=== PATIENT | female | born 1990 | race Caucasian/White ===

== ENCOUNTER 2018-10-01 10:27 | Inpatient (IN) | payer OTHER, MEDICAID ==
[~2018-10-01] VITALS: Ht 162.6 cm; Wt 80.9 kg
[~2018-10-01 10:27] MED LIST: HYDR473S51 PO; NEXIUM PO; ONDA4TAB10 PO; THYR90TA PO
[2018-10-01] MEDS ORDERED: PROMETHAZINE 25 MG/ML, 1ML IM ONE (11:30)
[2018-10-01] MEDS ORDERED: PROMETHAZINE 25 MG/ML, 1ML ONE (11:35)
--- NOTE | 2018-10-01 11:37 | NUR ---
ESPINOZA, DIZZY AND VOMITING STARTED YESTERDAY. WALKED TO BATHROOM WITH ASSISTANCE OF MOTHER. MEDICATED FOR N/V PER ORDERS
[2018-10-01 11:38] LABS: BASOPHILS # (AUTO) 0.06 x10^3/uL (0-0.1); BASOPHILS % (AUTO) 1 % (0-1); EOSINOPHILS # (AUTO) 0.07 x10^3/uL (0-0.4); EOSINOPHILS % (AUTO) 1 % (1-7); LYMPHOCYTES # (AUTO) 1.11 x10^3/uL (1-3.4); LYMPHOCYTES % (AUTO) 17 % (22-44); MD NO; MEAN CORPUSCULAR HGB CONC 33.6 g/dL (32.4-35.8); MEAN CORPUSCULAR VOLUME 101.1 fL (80-100); MEAN PLATELET VOLUME 9.2 fL (7.4-10.4); MONOCYTES # (AUTO) 0.36 x10^3/uL (0.2-0.8); MONOCYTES % (AUTO) 6 % (2-9); NEUTROPHILS # (AUTO) 4.82 x10^3/uL (1.8-6.8); NEUTROPHILS % (AUTO) 75 % (42-75); PLATELET COUNT 191 x10^3/uL (130-400); RED BLOOD COUNT 5.24 x10^6/uL (3.82-5.3); RED CELL DISTRIBUTION WIDTH 14.7 % (9.6-15.2)
[2018-10-01 11:46] LABS: ALBUMIN 3.7 g/dL (3.4-5.0); ANION GAP 5 mmol/L (5-15); CALCIUM 9.4 mg/dL (8.5-10.1); CHLORIDE 112 mmol/L (98-107); CREATININE 1.54 mg/dL (0.55-1.02)
--- NOTE | 2018-10-01 11:50 | NUR ---
MEDICATED FOR NAUSEA
[2018-10-01 12:05] LABS: MICROSCOPIC NOT IND
[2018-10-01 12:13] LABS: CULTURE INDICATED? NO
--- NOTE | 2018-10-01 12:24 | NUR ---
NAUSEA IMPROVES, CONTINUES TO HAVE ESPINOZA. PARENTS AT BEDSIDE
[2018-10-01] MEDS ORDERED: ASPIRIN 325 MG TABLET PO STA (12:55)
--- NOTE | 2018-10-01 13:40 | NUR ---
REPORT TO RN. PT TO BE TRANSPORTED TO FLOOR
[2018-10-01 13:55] VITALS: BP 127/71
[2018-10-01] MEDS ORDERED: OMEP1CAP14 PO (14:52)
[2018-10-01] MEDS ORDERED: SUCR1ORA5 PO (14:52)
[2018-10-01] MEDS: SODIUM CHLORIDE 0.9% 1,000 ML IV SCH (14:54)
[2018-10-01] MEDS ORDERED: KETOROLAC 30 MG/1 ML IVPush PRN ×2 (15:00)
[2018-10-01] MEDS ORDERED: IBUPROFEN 600 MG TABLET PO PRN (15:00)
[2018-10-01] MEDS ORDERED: ONDANSETRON ODT 4 MG PO PRN (15:00)
[2018-10-01] MEDS ORDERED: OMNIPAQUE 350 MG/ML, 100ML BOTTLE ONE (19:21)
[2018-10-01] MEDS: ONDANSETRON 2MG/ML, 2ML IVPush PRN (19:44)
[2018-10-01 20:20] VITALS: BP 100/66
[2018-10-01] MEDS: ACETAMINOPHEN 325 MG TABLET PO PRN (20:24)
[2018-10-02] MEDS: SODIUM CHLORIDE 0.9% 1,000 ML IV SCH ×4 (02:17→20:52)
[2018-10-02 02:19] VITALS: BP 135/73
[2018-10-02] MEDS: ACETAMINOPHEN 325 MG TABLET PO PRN (06:10)
[2018-10-02 06:21] LABS: ANION GAP 8 mmol/L (5-15); CHLORIDE 113 mmol/L (98-107)
[2018-10-02 06:23] LABS: BASOPHILS # (AUTO) 0.07 x10^3/uL (0-0.1); BASOPHILS % (AUTO) 1 % (0-1); EOSINOPHILS # (AUTO) 0.16 x10^3/uL (0-0.4); EOSINOPHILS % (AUTO) 3 % (1-7); LYMPHOCYTES # (AUTO) 1.46 x10^3/uL (1-3.4); LYMPHOCYTES % (AUTO) 31 % (22-44); MD NO; MEAN CORPUSCULAR HEMOGLOBIN 33.2 pg (27.0-34.8); MEAN CORPUSCULAR HGB CONC 32.9 g/dL (32.4-35.8); MEAN PLATELET VOLUME 9.4 fL (7.4-10.4); MONOCYTES # (AUTO) 0.32 x10^3/uL (0.2-0.8); MONOCYTES % (AUTO) 7 % (2-9); NEUTROPHILS # (AUTO) 2.79 x10^3/uL (1.8-6.8); NEUTROPHILS % (AUTO) 58 % (42-75); PLATELET COUNT 178 x10^3/uL (130-400); RED BLOOD COUNT 4.83 x10^6/uL (3.82-5.3); RED CELL DISTRIBUTION WIDTH 14.8 % (9.6-15.2)
[2018-10-02 06:28] LABS: ALANINE AMINOTRANSFERASE 26 U/L (12-78); ALKALINE PHOSPHATASE 53 U/L (45-117); BILIRUBIN,TOTAL 0.8 mg/dL (0.2-1.0); CHOL/HDL RATIO 3.7; CHOLESTEROL, TOTAL 157 mg/dL (140-239); CREATININE 1.41 mg/dL (0.55-1.02); HDL CHOL % 27 % (28-40); HDL CHOLESTEROL (DIRECT) 43 mg/dL (40-60); LDL CHOLESTEROL,CALCULATED 100 mg/dL (54-169); LDL/HDL RATIO 2.3 (0.5-3.0); TOTAL PROTEIN 6.3 g/dL (6.4-8.2); TRIGLYCERIDES 69 mg/dL (50-200); VLDL CHOLESTEROL 14 mg/dL (0-25)
[2018-10-02 08:00] VITALS: BP 114/66
[2018-10-02] MEDS: IBUPROFEN 600 MG TABLET PO PRN ×2 (08:54→18:28)
[2018-10-02] MEDS ORDERED: ASPIRIN 81 MG TABLET EC ONE (12:59)
[2018-10-02] MEDS ORDERED: ASPIRIN 81 MG TABLET EC PO ONE (13:00)
[2018-10-02] MEDS: ONDANSETRON 2MG/ML, 2ML IVPush PRN (13:03)
[2018-10-02 13:44] VITALS: BP 116/74
[2018-10-02] MEDS ORDERED: OMEPRAZOLE/SOD. BICARB. PACKET ONE (14:51)
[2018-10-02] MEDS ORDERED: OMEPRAZOLE/SOD. BICARB. PACKET PO ONE (15:00)
[2018-10-02] MEDS ORDERED: OMEPRAZOLE 20 MG CAPSULE.DR PO SCH (16:00)
[2018-10-02 20:00] VITALS: BP 107/71
[2018-10-02] MEDS ORDERED: SUCRALFATE 1 GM/10 ML UDC PO SCH (21:00)
[2018-10-02] MEDS ORDERED: ATORVASTATIN 20 MG TABLET PO SCH (21:00)
[2018-10-03 02:58] VITALS: BP 100/65
[2018-10-03] MEDS: SODIUM CHLORIDE 0.9% 1,000 ML IV SCH (05:09)
[2018-10-03] MEDS ORDERED: ASPIRIN 81 MG TABLET EC PO SCH (06:00)
[2018-10-03] MEDS ORDERED: THYROID 30 MG TABLET PO SCH (06:00)
[2018-10-03 06:14] LABS: BASOPHILS # (AUTO) 0.01 x10^3/uL (0-0.1); BASOPHILS % (AUTO) 0 % (0-1); EOSINOPHILS # (AUTO) 0.21 x10^3/uL (0-0.4); EOSINOPHILS % (AUTO) 3 % (1-7); LYMPHOCYTES # (AUTO) 1.25 x10^3/uL (1-3.4); LYMPHOCYTES % (AUTO) 19 % (22-44); MD NO; MEAN CORPUSCULAR HEMOGLOBIN 33.3 pg (27.0-34.8); MEAN CORPUSCULAR VOLUME 100.8 fL (80-100); MEAN PLATELET VOLUME 9.1 fL (7.4-10.4); MONOCYTES # (AUTO) 0.23 x10^3/uL (0.2-0.8); MONOCYTES % (AUTO) 3 % (2-9); NEUTROPHILS % (AUTO) 75 % (42-75); PLATELET COUNT 163 x10^3/uL (130-400); RED BLOOD COUNT 4.79 x10^6/uL (3.82-5.3); RED CELL DISTRIBUTION WIDTH 15.1 % (9.6-15.2)
[2018-10-03 06:23] LABS: ALBUMIN 2.9 g/dL (3.4-5.0); ANION GAP 6 mmol/L (5-15); CALCIUM 8.3 mg/dL (8.5-10.1); CHLORIDE 117 mmol/L (98-107)
[2018-10-03 06:26] LABS: ALANINE AMINOTRANSFERASE 22 U/L (12-78); ALKALINE PHOSPHATASE 50 U/L (45-117); BILIRUBIN,TOTAL 0.7 mg/dL (0.2-1.0); CREATININE 1.18 mg/dL (0.55-1.02); TOTAL PROTEIN 6.1 g/dL (6.4-8.2)
[2018-10-03 09:26] VITALS: BP 118/76
[2018-10-03] MEDS ORDERED: ASPI81TA45 PO (10:39)
[2018-10-03] MEDS ORDERED: ATOR20TA37 PO (10:39)
== END 2018-10-03 11:30 | disposition home or self-care (01) | DRG 70 ==
LOC: ED 11:42 → EDIP 12:41 → 4EST 14:00 → DCLOUNGE 10-03 11:19
PROVIDERS: ADMIT Internal Medicine; ATTEND Internal Medicine
DX: G93.89 Other specified disorders of brain (principal); Q28.3 Other malformations of cerebral vessels; Q21.0 Ventricular septal defect; Q21.1 Atrial septal defect; R51 Headache; E03.9 Hypothyroidism, unspecified; K21.9 Gastro-esophageal reflux disease without esophagitis; K22.0 Achalasia of cardia; K22.8 Other specified diseases of esophagus; H53.2 Diplopia; Q90.9 Down syndrome, unspecified; Z79.82 Long term (current) use of aspirin; Z79.899 Other long term (current) drug therapy; Z82.49 Family history of ischemic heart disease and other diseases of the circulatory system; Z86.73 Personal history of transient ischemic attack (TIA), and cerebral infarction without residual deficits
CPT/HCPCS: 36415; 70450; 70498; 70553; 80048; 80053; 80061; 81003; 81240; 82040; 82232; 83695; 84443; 84703; 85025; 85240; 85300; 85302; 85305; 85306; 85307; 85613; 85670; 85705; 85730; 85732; 86147; 93005; 93306; 96372; G0378; J1885; J2405; J2550; Q9967; J7030

== ENCOUNTER 2019-03-28 14:24 | Outpatient (CLI) | payer OTHER, MEDICAID ==
[~2019-03-28 14:24] MED LIST changes: +ASPI81TA45 PO; +ATOR20TA37 PO; +OMEP1CAP14 PO; +SUCR1ORA5 PO
== END 2019-03-28 23:59 | disposition home or self-care (01) ==
LOC: CFH 14:24
PROVIDERS: ATTEND Obstetrics & Gynecology Gynecology
DX: R10.2 Pelvic and perineal pain (principal)
CPT/HCPCS: 76856

== ENCOUNTER → 2019-06-19 | Outpatient (CLI) | payer OTHER, MEDICAID ==
[~2019-06-19] MED LIST changes: +OMNIPAQUE 350 MG/ML, 100ML BOTTLE ONE
== END | disposition home or self-care (01) ==
LOC: CFH 07:34
PROVIDERS: ATTEND Obstetrics & Gynecology Gynecology
DX: K44.9 Diaphragmatic hernia without obstruction or gangrene (principal); K76.0 Fatty (change of) liver, not elsewhere classified; R10.2 Pelvic and perineal pain
CPT/HCPCS: 74178; Q9967

== ENCOUNTER 2019-06-26 14:56 | Emergency (ER) | payer OTHER, MEDICAID ==
[~2019-06-26] VITALS: Ht 162.6 cm; Wt 113.0 kg
[~2019-06-26 14:56] MED LIST changes: -OMNIPAQUE 350 MG/ML, 100ML BOTTLE ONE
[2019-06-26 15:33] VITALS: BP 136/80
[2019-06-26 16:14] LABS: BASOPHILS # (AUTO) 0.05 x10^3/uL (0-0.1); BASOPHILS % (AUTO) 1 % (0-1); EOSINOPHILS % (AUTO) 1 % (1-7); LYMPHOCYTES % (AUTO) 22 % (22-44); MD NO; MEAN CORPUSCULAR HEMOGLOBIN 32.7 pg (27.0-34.8); MEAN CORPUSCULAR HGB CONC 33.2 g/dL (32.4-35.8); MEAN CORPUSCULAR VOLUME 98.5 fL (80-100); MEAN PLATELET VOLUME 9.4 fL (7.4-10.4); MONOCYTES # (AUTO) 0.38 x10^3/uL (0.2-0.8); MONOCYTES % (AUTO) 5 % (2-9); NEUTROPHILS # (AUTO) 5.18 x10^3/uL (1.8-6.8); NEUTROPHILS % (AUTO) 71 % (42-75); PLATELET COUNT 204 x10^3/uL (130-400); RED BLOOD COUNT 5.22 x10^6/uL (3.82-5.3); RED CELL DISTRIBUTION WIDTH 14.6 % (9.6-15.2)
[2019-06-26 16:24] LABS: ALANINE AMINOTRANSFERASE 33 U/L (12-78); ALBUMIN 3.5 g/dL (3.4-5.0); ANION GAP 6 mmol/L (5-15); CALCIUM 8.7 mg/dL (8.5-10.1); CHLORIDE 111 mmol/L (98-107)
[2019-06-26 16:29] LABS: ALKALINE PHOSPHATASE 63 U/L (45-117); BILIRUBIN,TOTAL 0.8 mg/dL (0.2-1.0); TOTAL PROTEIN 7.7 g/dL (6.4-8.2)
[2019-06-26] MEDS ORDERED: OXYcodone/APAP 5/325MG TABLET ONE (16:33)
[2019-06-26] MEDS ORDERED: OXYcodone/APAP 5/325MG TABLET PO ONE (17:00)
[2019-06-26 17:20] LABS: MICROSCOPIC NOT IND
[2019-06-26 17:21] LABS: CULTURE INDICATED? NO
--- NOTE | 2019-06-26 17:52 | NUR ---
Patient & mom given discharge instructions and they have confirmed that they understand the instructions. Patient ambulatory with steady gait.
== END 2019-06-26 18:01 | disposition home or self-care (01) ==
LOC: ED 17:58
DX: R10.2 Pelvic and perineal pain (principal)
CPT/HCPCS: 36415; 80053; 81003; 84702; 85025; 99283